=== PATIENT | female | born 1955 | race Caucasian/White ===

== ENCOUNTER 2021-05-29 08:55 | Outpatient (CLI) | payer MEDICARE | END 2021-05-29 08:56 | disposition home or self-care (01) | LOC: CSHMAMMO 08:55 | PROVIDERS: ATTEND Internal Medicine | DX: Z12.31 Encounter for screening mammogram for malignant neoplasm of breast (principal); Z80.3 Family history of malignant neoplasm of breast; Z85.42 Personal history of malignant neoplasm of other parts of uterus; Z85.828 Personal history of other malignant neoplasm of skin | CPT/HCPCS: 77063; 77067 ==

== ENCOUNTER 2022-04-06 15:09 | Emergency (ER) | payer MEDICARE ==
[2022-04-06] MEDS ORDERED: Acetaminophen 500 MG TAB ONE (16:58)
[2022-04-06] MEDS ORDERED: Boostrix 0.5 ML (Tdap) VIAL (>/=7 yrs of age) ONE (17:28)
== END 2022-04-06 17:35 | disposition home or self-care (01) ==
LOC: CSHERS 15:09
DX: S01.511A Laceration without foreign body of lip, initial encounter (principal); S00.03XA Contusion of scalp, initial encounter; S80.02XA Contusion of left knee, initial encounter; W19.XXXA Unspecified fall, initial encounter
CPT/HCPCS: 12011; 70450; 70486; 90471; 90715

== ENCOUNTER 2022-05-31 08:21 | Outpatient (CLI) | payer MEDICARE | END 2022-05-31 08:22 | disposition home or self-care (01) | LOC: CSHMAMMO 08:21 | PROVIDERS: ATTEND Internal Medicine | DX: Z12.31 Encounter for screening mammogram for malignant neoplasm of breast (principal); Z80.3 Family history of malignant neoplasm of breast; Z85.42 Personal history of malignant neoplasm of other parts of uterus; Z85.828 Personal history of other malignant neoplasm of skin | CPT/HCPCS: 77063; 77067 ==

== ENCOUNTER 2023-06-06 08:50 | Outpatient (CLI) | payer MEDICARE | END 2023-06-06 08:51 | disposition home or self-care (01) | LOC: CSHMAMMO 08:50 | PROVIDERS: ATTEND Internal Medicine | DX: Z12.31 Encounter for screening mammogram for malignant neoplasm of breast (principal); Z80.3 Family history of malignant neoplasm of breast; Z85.42 Personal history of malignant neoplasm of other parts of uterus; Z85.828 Personal history of other malignant neoplasm of skin | CPT/HCPCS: 77063; 77067 ==

== ENCOUNTER 2024-07-30 13:49 | Outpatient (CLI) | payer MEDICARE | END 2024-07-30 13:50 | disposition home or self-care (01) | LOC: CSHMAMMO 13:49 | PROVIDERS: ATTEND Internal Medicine | DX: Z12.31 Encounter for screening mammogram for malignant neoplasm of breast (principal); Z80.3 Family history of malignant neoplasm of breast; Z85.828 Personal history of other malignant neoplasm of skin; Z85.42 Personal history of malignant neoplasm of other parts of uterus; Z91.89 Other specified personal risk factors, not elsewhere classified | CPT/HCPCS: 77063; 77067 ==